=== PATIENT | male | born 1955 | race Caucasian/White ===

== ENCOUNTER 2016-12-06 15:20 | Emergency (ER) | payer OTHER ==
[~2016-12-06] VITALS: Ht 175.3 cm; Wt 86.4 kg
[~2016-12-06 15:20] MED LIST: Colace PO; Colchicine,Colcrys PO; FLEXERIL10 MG PO; MITIGARE0.6 MG PO; NAPROSYN500 MG PO; PERCOCET 5/31 TABLET PO; PREDNISONE20 MG PO; PRILOSEC40 MG PO; Percocet 5/325,Endoc PO; predniSONE PO
[2016-12-06 19:07] LABS: RED CELL COUNT < 1000 /MM^3 (0-1); WHITE CELL COUNT 181 /MM^3 (0-200.0)
[2016-12-06 19:43] LABS: MONO RAW COUNT 94; MONONUCLEAR WBC'S 94 %; POLY RAW COUNT 6; POLYNUCLEAR WBC'S 6 % (0-25); SYNOVIAL FLUID EOSINOPHILS 0 % (0-25)
[2016-12-06] MEDS ORDERED: MOTRIN800 MG PO (21:00)
[2016-12-06 21:14] VITALS: BP 150/85
[2016-12-07 08:52] LABS: CRYSTALS NO CRYSTALS SEEN
== END 2016-12-06 21:17 | disposition home or self-care (01) ==
LOC: EME 15:20
PROVIDERS: Nurse Practitioner Family
PROC: 0S9C3ZZ Drainage of Right Knee Joint, Percutaneous Approach (ICD-10-PCS; principal; 2016-12-06)
DX: M25.461 Effusion, right knee (principal)
CPT/HCPCS: 73564; 87205; 89051; 89060; 99281; 99284

== ENCOUNTER → 2017-09-03 | Outpatient (CLI) | payer OTHER ==
[~2017-09-03] MED LIST changes: +MOTRIN800 MG PO
== END | disposition home or self-care (01) ==
LOC: RAD 09:15
DX: Z02.71 Encounter for disability determination (principal); M48.061 Spinal stenosis, lumbar region without neurogenic claudication; M51.26 Other intervertebral disc displacement, lumbar region; Z98.1 Arthrodesis status
CPT/HCPCS: 72100